=== PATIENT | female | born 1960 | race African-American/Black ===

== ENCOUNTER 2018-05-01 10:00 | Emergency (ER) | payer BC, MEDICAID, OTHER ==
[~2018-05-01] VITALS: Ht 160 cm; Wt 71.2 kg
[~2018-05-01 10:00] MED LIST: ALBUTEROL SULF8.5 GM INH; AZITHROMYCIN250 MG ORAL; IBUPROFEN600 MG ORAL; SYMBICORT 16010.2 G1 IH
[2018-05-01 10:09] VITALS: BP 143/99
[2018-05-01] MEDS ORDERED: CYCLOBENZAPRINE10 MG ORAL (10:43)
--- NOTE | 2018-05-01 10:43 | Emergency Room Report ---
History of Present Illness General Chief Complaint: Back Pain-No Injury Source: Patient Present Illness HPI The pain is described as a burning-ache across lower back gradual onset 24 hours. It is not "tearing" quality. There is no trauma per se, no weakness or numbness or bladder or bowel abnormality. There are no urinary complaints (no frequency, urgency or dysuria.) There is no flank pain. There is no abdominal pain. There is no discharge. Pt. is ambulatory. No recent PSH/procedures/ trauma. +one previous ED visits for same. Allergies: Coded Allergies: CODEINE (Verified Allergy, Mild, 05/17/13) PENICILLINS (Verified Allergy, Mild, 05/17/13) NAPROXEN (Verified Allergy, Unknown, 05/01/18) Patient History Now: No Nursing Documentation-[facility] Past Medical History: No History, Except For Hx Asthma: Yes Review of Systems Constitutional: Reports: no symptoms Eye: Reports: no symptoms ENT: Reports: no symptoms Respiratory: Reports: no symptoms Cardiovascular: Reports: no symptoms Gastrointestinal: Reports: no symptoms Genitourinary: Reports: no symptoms Musculoskeletal: Reports: see HPI, back pain Skin: Reports: no symptoms Psychiatric: Reports: no symptoms Neurological: Reports: no symptoms Endocrine: Reports: no symptoms Hematologic/Lymphatic: Reports: no symptoms Allergic: Reports: no symptoms All Other Systems: negative except mentioned in HPI Physical Exam Vital Signs Date Time Temp Pulse Resp B/P (MAP) Pulse Ox O2 Delivery O2 Flow Rate FiO2 05/01/18 10:03 98.1 79 20 146/98 98 05/01/18 10:09 Room Air Sp02 EP Interpretation: reviewed, normal General Appearance: normal inspection, well appearing, alert, GCS 15, non-toxic , mild distress, other - pt. is only standing during ED stay Head: normocephalic, atraumatic Eyes: bilateral eye normal inspection, bilateral eye PERRL, bilateral eye EOMI ENT: normal ENT inspection, hearing grossly normal, normal pharynx, no angioedema, normal voice, moist mucus membranes Neck: normal inspection, full range of motion, supple, no meningismus, no bony tend Respiratory: normal inspection, lungs clear, normal breath sounds, no rhonchi, no respiratory distress, no retraction, no accessory muscle use, no wheezing Cardiovascular #1: normal inspection, regular rate, rhythm, no edema Gastrointestinal: normal inspection, normal bowel sounds, non tender, soft, no mass, non-distended Musculoskeletal: gait/station normal, normal range of motion, other - reproducible tenderness paraspinal mid-lower lumbar Neurologic: normal inspection, alert, oriented x3, responsive, motor strength/ tone normal Psychiatric: normal inspection, judgement/insight normal, memory normal Suicide Risk Assessment: Suicidal Ideation: No Had intent to initiate attempt: No Pt's plan for suicide attempt: No Has means to complete attempt: No Skin: normal inspection, normal color, no rash, warm/dry Medical Decision Making Diagnostic Impression: Primary Impression: Back pain ER Course Patient is having low back pain. Has had back pain on and off for years the last time she was here was in December and she was prescribed tramadol. Patient seems generally uncomfortable, she is not permitted to take NSAIDs. Therefore in the emergency department I prescribing Flexeril and at home 20 Flexeril. Last Vital Signs Date Time Temp Pulse Resp B/P (MAP) Pulse Ox O2 Delivery O2 Flow Rate FiO2 05/01/18 10:09 98.3 75 18 143/99 98 Room Air Status: unchanged Disposition: HOME, SELF-CARE Condition: Stable Scripts Cyclobenzaprine Hcl* (FLEXERIL*) 10 Mg Tablet 10 MG ORAL TID PRN for Muscle Spasm, #20 TAB Prov: Bogdan Damico M.D. 05/01/18 Patient Instructions: Back Pain, Adult Bogdan Damico M.D. May 01, 2018 10:43
[2018-05-01] MEDS ORDERED: Cyclobenzaprine 10mg Tab ORAL ONE (10:45)
[2018-05-01 11:00] VITALS: BP 141/100
== END 2018-05-01 11:09 | disposition home or self-care (01) ==
LOC: EMR 10:50
DX: M54.5 Low back pain (principal); J45.909 Unspecified asthma, uncomplicated; Z88.5 Allergy status to narcotic agent; Z88.6 Allergy status to analgesic agent; Z88.0 Allergy status to penicillin
CPT/HCPCS: 99282